=== PATIENT | male | born 1985 | race Caucasian/White ===

== ENCOUNTER 2018-05-17 18:09 | Emergency (ER) | payer OTHER | END 2018-05-17 19:09 | disposition home or self-care (01) | LOC: FTE 18:09 | DX: R10.31 Right lower quadrant pain (principal); R11.0 Nausea | CPT/HCPCS: 99284-25; Z7502 ==

== ENCOUNTER 2019-02-25 13:13 | Emergency (ER) | payer OTHER ==
[2019-02-25] MEDS: KETOROLAC 30 MG INJ IM (15:11)
== END 2019-02-25 16:06 | disposition home or self-care (01) ==
LOC: FTE 13:13
DX: S89.91XA Unspecified injury of right lower leg, initial encounter (principal); X58.XXXA Exposure to other specified factors, initial encounter; Y92.9 Unspecified place or not applicable; Z87.891 Personal history of nicotine dependence
CPT/HCPCS: 73562; 96372; 99284-25